=== PATIENT | male | born 1950 | race Two or more races ===

== ENCOUNTER 2018-04-04 08:45 | Day surgery (SDC) | payer OTHER ==
[~2018-04-04 08:45] MED LIST: ARICEPT 5MG; ASPIRIN 81 MG; CIPRO500 MG PO; LIPITOR20 MG; MULTIVITAMINA; PERCOCET 5/3251 TAB PO; PROBIOTIC1 EAC3; RECTICARE30 GM TP; TRAM1TAB PO; [UNRECOGNIZED DRUG - CODE]
== END 2018-04-04 13:50 | disposition home or self-care (01) ==
LOC: AMB-ENDOS 08:45
DX: K57.30 Diverticulosis of large intestine without perforation or abscess without bleeding (principal); K64.8 Other hemorrhoids

== ENCOUNTER 2018-12-12 17:34 | Outpatient (CLI) | payer OTHER ==
[2018-12-13] MEDS ORDERED: ZETIA10 MG (20:20)
[2018-12-13] MEDS ORDERED: ASPIR 8181 MG (20:20)
[2018-12-13] MEDS ORDERED: ARICEPT5 MG (20:21)
[2018-12-13] MEDS ORDERED: FISH OIL 1,0001 EAC4 (20:23)
[2018-12-13] MEDS ORDERED: CIDAFLEX TABLE1 EACH (20:23)
[2018-12-13] MEDS ORDERED: MULTIPLE VITAM1 EACH (20:23)
[2018-12-13] MEDS ORDERED: METAMUCIL0.4 GM (20:23)
[2018-12-13] MEDS ORDERED: CO Q-10300 MG (20:24)
== END 2018-12-12 17:40 | disposition home or self-care (01) ==
LOC: LAB 17:34
DX: D69.8 Other specified hemorrhagic conditions (principal); M32.8 Other forms of systemic lupus erythematosus; A54.89 Other gonococcal infections

== ENCOUNTER 2018-12-13 19:46 | Inpatient (IN) | payer OTHER ==
[~2018-12-13] VITALS: Ht 182.9 cm; Wt 81.2 kg
--- NOTE | 2018-12-13 20:16 | NUR ---
SE RECIBE PTE ALERTA Y ORIENTADO X3,REFIERE QUE LE SALIO KAREN ESPECIE DE ALER[place]IA EN EL CUERPO ,REFIERE QUE FUE A AC INTENISTA JAEL CRAFT EL CUAL LO REFIERE A LA CLARITA DE ER.,DEBIDO A QUE TIENE LAS PLAQUETAS EN 3,000 ,REFIERE QUE EN CUAL SITUACION DE LYNDSEY FAVOR LLAMAR A AC SOBRINO OPHELIA GUILLAUME [phone].
[2018-12-13] MEDS ORDERED: ZETIA10 MG (20:20)
[2018-12-13] MEDS ORDERED: ASPIR 8181 MG (20:20)
[2018-12-13] MEDS ORDERED: ARICEPT5 MG (20:21)
[2018-12-13] MEDS ORDERED: FISH OIL 1,0001 EAC4 (20:23)
[2018-12-13] MEDS ORDERED: CIDAFLEX TABLE1 EACH (20:23)
[2018-12-13] MEDS ORDERED: MULTIPLE VITAM1 EACH (20:23)
[2018-12-13] MEDS ORDERED: METAMUCIL0.4 GM (20:23)
[2018-12-13] MEDS ORDERED: CO Q-10300 MG (20:24)
--- NOTE | 2018-12-13 21:37 | NUR ---
SE ORIENTA PTE Y FAMILIAR SOBRE EL TRATAMIENTO ORDENADO POR EL DR SANDOVAL PTE ALERTA Y CONCIENTE POR 3 SE REALIZA MUESTRAS DE LABORATORIO Y SE ADMINISTRAN MEDICAMENTO FRANCINE ORDENADO PTE SE MANTIENE EN OBSERVACION Y BAJO TRATAMIENTO SE DOMINGUEZ TUBO ITZEL Y SE ENVIAN AL BANCO DE LIZETT Y SE LE ENTREGA AL SR,MICHAEL
[2018-12-27] MEDS ORDERED: ARICEPT5 MG PO (10:39)
[2018-12-27] MEDS ORDERED: ALPRAZOLAM0.5 MG PO (10:40)
[2018-12-27] MEDS ORDERED: PYRIDOXINE HCL100 M1 PO (10:40)
[2018-12-27] MEDS ORDERED: PANTOPRAZOLE SO40 MG PO (10:40)
[2018-12-27] MEDS ORDERED: Neurin-Sl Tablet Sl SL (10:41)
[2018-12-27] MEDS ORDERED: B Complex CAPSULE PO (10:41)
[2018-12-27] MEDS ORDERED: PREDNISONE20 MG PO (10:43)
[2018-12-27] MEDS ORDERED: ZOVIRAX400 M1 PO (10:44)
== END 2018-12-27 14:42 | disposition home or self-care (01) | DRG 813 ==
LOC: ER 19:46 → MEDI 22:39 → MEDJ 22:39 → SEC-K 22:39 → MEDI 23:48 → MEDJ 12-14 15:17
PROVIDERS: ADMIT Internal Medicine Geriatric Medicine
PROC: 30233R1 Transfusion of Nonautologous Platelets into Peripheral Vein, Percutaneous Approach (ICD-10-PCS; 2018-12-13)
PROC: 8E0ZXY6 Isolation (ICD-10-PCS; 2018-12-14)
PROC: 07DQ3ZX Extraction of Sternum Bone Marrow, Percutaneous Approach, Diagnostic (ICD-10-PCS; principal; 2018-12-18)
PROC: BW40ZZZ Ultrasonography of Abdomen (ICD-10-PCS; 2018-12-19)
DX: D69.3 Immune thrombocytopenic purpura (principal); D12.7 Benign neoplasm of rectosigmoid junction; D69.49 Other primary thrombocytopenia; E78.2 Mixed hyperlipidemia; G30.0 Alzheimer's disease with early onset; F02.80 Dementia in other diseases classified elsewhere, unspecified severity, without behavioral disturbance, psychotic disturbance, mood disturbance, and anxiety; B35.1 Tinea unguium; R33.8 Other retention of urine

== ENCOUNTER → 2019-01-01 10:22 | Outpatient (CLI) | payer OTHER ==
[~2019-01-01 10:22] MED LIST changes: +ALPRAZOLAM0.5 MG PO; +ARICEPT5 MG; +ARICEPT5 MG PO; +ASPIR 8181 MG; +B Complex CAPSULE PO; +CIDAFLEX TABLE1 EACH; +CO Q-10300 MG; +FISH OIL 1,0001 EAC4; +METAMUCIL0.4 GM; +MULTIPLE VITAM1 EACH; +Neurin-Sl Tablet Sl SL; +PANTOPRAZOLE SO40 MG PO; +PREDNISONE20 MG PO; +PYRIDOXINE HCL100 M1 PO; +ZETIA10 MG; +ZOVIRAX400 M1 PO
== END | disposition home or self-care (01) ==
LOC: LAB 10:22
DX: D69.49 Other primary thrombocytopenia (principal); D69.3 Immune thrombocytopenic purpura

== ENCOUNTER 2019-01-09 12:40 | Outpatient (CLI) | payer OTHER | END 2019-01-09 15:29 | disposition home or self-care (01) | LOC: LAB 12:40 | DX: D69.3 Immune thrombocytopenic purpura (principal) ==

== ENCOUNTER 2019-01-16 11:22 | Outpatient (CLI) | payer OTHER | END 2019-01-16 15:44 | disposition home or self-care (01) | LOC: LAB 11:22 | DX: D69.3 Immune thrombocytopenic purpura (principal); D50.8 Other iron deficiency anemias; D51.8 Other vitamin B12 deficiency anemias; I10 Essential (primary) hypertension; E03.8 Other specified hypothyroidism; E78.2 Mixed hyperlipidemia ==

== ENCOUNTER 2019-01-30 10:07 | Outpatient (CLI) | payer OTHER | END 2019-01-30 10:15 | disposition home or self-care (01) | LOC: LAB 10:07 | DX: D68.8 Other specified coagulation defects (principal); D51.3 Other dietary vitamin B12 deficiency anemia; I10 Essential (primary) hypertension; D69.3 Immune thrombocytopenic purpura ==

== ENCOUNTER 2019-02-14 07:32 | Outpatient (CLI) | payer OTHER | END 2019-02-14 08:57 | disposition home or self-care (01) | LOC: LAB 07:32 | DX: D69.3 Immune thrombocytopenic purpura (principal); D50.8 Other iron deficiency anemias; D51.8 Other vitamin B12 deficiency anemias; I10 Essential (primary) hypertension ==

== ENCOUNTER 2019-02-28 07:42 | Outpatient (CLI) | payer OTHER | END 2019-02-28 07:51 | disposition home or self-care (01) | LOC: LAB 07:42 | DX: D69.3 Immune thrombocytopenic purpura (principal); D50.8 Other iron deficiency anemias; D51.8 Other vitamin B12 deficiency anemias; I10 Essential (primary) hypertension ==

== ENCOUNTER 2019-03-19 08:44 | Outpatient (CLI) | payer OTHER | END 2019-03-19 09:37 | disposition home or self-care (01) | LOC: LAB 08:44 | DX: D69.3 Immune thrombocytopenic purpura (principal) ==

== ENCOUNTER 2019-04-03 11:11 | Outpatient (CLI) | payer OTHER | END 2019-04-03 11:20 | disposition home or self-care (01) | LOC: LAB 11:11 | DX: D69.3 Immune thrombocytopenic purpura (principal); D50.8 Other iron deficiency anemias ==

== ENCOUNTER 2019-04-18 10:14 | Outpatient (CLI) | payer OTHER | END 2019-04-18 10:20 | disposition home or self-care (01) | LOC: LAB 10:14 | DX: D69.3 Immune thrombocytopenic purpura (principal); I10 Essential (primary) hypertension ==

== ENCOUNTER → 2019-05-01 12:24 | Outpatient (CLI) | payer OTHER | END | disposition home or self-care (01) | LOC: LAB 12:24 | DX: D69.3 Immune thrombocytopenic purpura (principal); I10 Essential (primary) hypertension; D50.8 Other iron deficiency anemias ==

== ENCOUNTER 2019-05-22 10:05 | Outpatient (CLI) | payer OTHER | END 2019-05-22 10:09 | disposition home or self-care (01) | LOC: LAB 10:05 | DX: D69.3 Immune thrombocytopenic purpura (principal); I10 Essential (primary) hypertension ==

== ENCOUNTER → 2019-06-19 10:13 | Outpatient (CLI) | payer OTHER | END | disposition home or self-care (01) | LOC: LAB 10:13 | DX: D69.3 Immune thrombocytopenic purpura (principal); D50.8 Other iron deficiency anemias; D51.1 Vitamin B12 deficiency anemia due to selective vitamin B12 malabsorption with proteinuria ==

== ENCOUNTER 2019-07-18 08:56 | Outpatient (CLI) | payer OTHER | END 2019-07-18 11:41 | disposition home or self-care (01) | LOC: LAB 08:56 | DX: D69.3 Immune thrombocytopenic purpura (principal); I10 Essential (primary) hypertension; D50.8 Other iron deficiency anemias ==

== ENCOUNTER 2019-08-08 09:01 | Outpatient (CLI) | payer OTHER | END 2019-08-08 09:07 | disposition home or self-care (01) | LOC: LAB 09:01 | DX: D50.8 Other iron deficiency anemias (principal); I10 Essential (primary) hypertension; D69.3 Immune thrombocytopenic purpura ==

== ENCOUNTER 2019-09-20 07:03 | Outpatient (CLI) | payer OTHER | END 2019-09-20 07:10 | disposition home or self-care (01) | LOC: LAB 07:03 | DX: D69.3 Immune thrombocytopenic purpura (principal); A92.5 Zika virus disease; E78.2 Mixed hyperlipidemia; D51.3 Other dietary vitamin B12 deficiency anemia; D50.8 Other iron deficiency anemias; D51.8 Other vitamin B12 deficiency anemias; E03.8 Other specified hypothyroidism ==

== ENCOUNTER 2019-11-20 08:06 | Outpatient (CLI) | payer OTHER | END 2019-11-20 08:11 | disposition home or self-care (01) | LOC: LAB 08:06 | DX: D69.3 Immune thrombocytopenic purpura (principal); A92.5 Zika virus disease; E78.2 Mixed hyperlipidemia; D51.3 Other dietary vitamin B12 deficiency anemia; D50.8 Other iron deficiency anemias; D51.8 Other vitamin B12 deficiency anemias; I10 Essential (primary) hypertension ==

== ENCOUNTER → 2020-03-12 08:36 | Outpatient (CLI) | payer OTHER | END | disposition home or self-care (01) | LOC: LAB 08:36 | DX: E03.8 Other specified hypothyroidism (principal); D51.8 Other vitamin B12 deficiency anemias; N18.9 Chronic kidney disease, unspecified; E78.00 Pure hypercholesterolemia, unspecified; E55.9 Vitamin D deficiency, unspecified; D69.3 Immune thrombocytopenic purpura; A92.5 Zika virus disease; E78.2 Mixed hyperlipidemia; D51.3 Other dietary vitamin B12 deficiency anemia ==

== ENCOUNTER → 2020-07-21 08:14 | Outpatient (CLI) | payer OTHER | END | disposition home or self-care (01) | LOC: LAB 08:14 | PROVIDERS: ATTEND Internal Medicine Hematology & Oncology | DX: D50.8 Other iron deficiency anemias (principal); I10 Essential (primary) hypertension; D69.49 Other primary thrombocytopenia; D51.8 Other vitamin B12 deficiency anemias; D69.3 Immune thrombocytopenic purpura; A92.5 Zika virus disease; E78.2 Mixed hyperlipidemia; D51.3 Other dietary vitamin B12 deficiency anemia ==

== ENCOUNTER → 2021-04-06 08:19 | Outpatient (CLI) | payer OTHER | END | disposition home or self-care (01) | LOC: LAB 08:19 | PROVIDERS: ATTEND Internal Medicine Hematology & Oncology | DX: D50.8 Other iron deficiency anemias (principal); I10 Essential (primary) hypertension; D69.6 Thrombocytopenia, unspecified; D51.8 Other vitamin B12 deficiency anemias; E78.2 Mixed hyperlipidemia; E03.8 Other specified hypothyroidism; R97.0 Elevated carcinoembryonic antigen [CEA]; R97.8 Other abnormal tumor markers; R97.20 Elevated prostate specific antigen [PSA] ==

== ENCOUNTER 2021-09-21 07:48 | Outpatient (CLI) | payer OTHER | END 2021-09-21 07:50 | disposition home or self-care (01) | LOC: LAB 07:48 | PROVIDERS: ATTEND Internal Medicine Hematology & Oncology | DX: D50.8 Other iron deficiency anemias (principal); I10 Essential (primary) hypertension; R74.02 Elevation of levels of lactic acid dehydrogenase [LDH]; K76.89 Other specified diseases of liver; D69.6 Thrombocytopenia, unspecified; D51.8 Other vitamin B12 deficiency anemias; E55.9 Vitamin D deficiency, unspecified; E78.2 Mixed hyperlipidemia; E03.8 Other specified hypothyroidism; R97.0 Elevated carcinoembryonic antigen [CEA]; R97.8 Other abnormal tumor markers; R97.20 Elevated prostate specific antigen [PSA] ==

== ENCOUNTER 2022-03-23 07:46 | Outpatient (CLI) | payer OTHER | END 2022-03-23 07:53 | disposition home or self-care (01) | LOC: LAB 07:46 | PROVIDERS: ATTEND Internal Medicine Hematology & Oncology | DX: D50.8 Other iron deficiency anemias (principal); I10 Essential (primary) hypertension; R74.02 Elevation of levels of lactic acid dehydrogenase [LDH]; K76.89 Other specified diseases of liver; D69.6 Thrombocytopenia, unspecified; D51.8 Other vitamin B12 deficiency anemias; E55.9 Vitamin D deficiency, unspecified; E78.2 Mixed hyperlipidemia; E03.8 Other specified hypothyroidism; R97.0 Elevated carcinoembryonic antigen [CEA]; R97.8 Other abnormal tumor markers; R97.20 Elevated prostate specific antigen [PSA]; D69.3 Immune thrombocytopenic purpura; D51.3 Other dietary vitamin B12 deficiency anemia; N40.1 Benign prostatic hyperplasia with lower urinary tract symptoms; A92.5 Zika virus disease ==

== ENCOUNTER 2022-12-21 08:36 | Outpatient (CLI) | payer OTHER | END 2022-12-21 08:55 | disposition home or self-care (01) | LOC: LAB 08:36 | PROVIDERS: ATTEND Internal Medicine Hematology & Oncology | DX: D50.8 Other iron deficiency anemias (principal); I10 Essential (primary) hypertension; R74.02 Elevation of levels of lactic acid dehydrogenase [LDH]; K76.89 Other specified diseases of liver; D69.6 Thrombocytopenia, unspecified; D51.8 Other vitamin B12 deficiency anemias; R97.0 Elevated carcinoembryonic antigen [CEA]; R97.8 Other abnormal tumor markers; R97.20 Elevated prostate specific antigen [PSA]; D69.3 Immune thrombocytopenic purpura; D51.3 Other dietary vitamin B12 deficiency anemia; N40.1 Benign prostatic hyperplasia with lower urinary tract symptoms; E78.2 Mixed hyperlipidemia; A92.5 Zika virus disease; R31.1 Benign essential microscopic hematuria; N41.0 Acute prostatitis; R33.9 Retention of urine, unspecified ==

== ENCOUNTER 2023-06-21 08:32 | Outpatient (CLI) | payer OTHER | END 2023-06-21 08:34 | disposition home or self-care (01) | LOC: LAB 08:32 | PROVIDERS: ATTEND Internal Medicine Hematology & Oncology | DX: D50.8 Other iron deficiency anemias (principal); I10 Essential (primary) hypertension; R74.02 Elevation of levels of lactic acid dehydrogenase [LDH]; K76.89 Other specified diseases of liver; D69.6 Thrombocytopenia, unspecified; D51.8 Other vitamin B12 deficiency anemias; R97.0 Elevated carcinoembryonic antigen [CEA]; R97.8 Other abnormal tumor markers; R97.20 Elevated prostate specific antigen [PSA]; D51.3 Other dietary vitamin B12 deficiency anemia; N40.1 Benign prostatic hyperplasia with lower urinary tract symptoms; E78.2 Mixed hyperlipidemia; A92.5 Zika virus disease; N30.00 Acute cystitis without hematuria; R31.1 Benign essential microscopic hematuria ==

== ENCOUNTER 2023-08-25 09:15 | Outpatient (CLI) | payer OTHER | END 2023-08-25 09:26 | disposition home or self-care (01) | LOC: MRI 09:15 | PROVIDERS: ATTEND Internal Medicine | DX: K86.2 Cyst of pancreas (principal) | CPT/HCPCS: 74182; Q9965; 74181 ==

== ENCOUNTER → 2023-12-13 07:44 | Outpatient (CLI) | payer OTHER ==
[2023-12-13 08:38] LABS: HEMOGLOBIN 14.1 g/dL (13-16.00); MEAN CELL VOLUME 84.9 fL (80.0-100.00); MEAN CORPUSCULAR HEMOGLOBIN 28.4 pg (27.00-32.0); MEAN CORPUSCULAR HGB CONC 33.5 g/dl (32.0-36.0); PLATELET COUNT 177 K/uL (150-450); RED BLOOD COUNT 4.95 M/uL (4.00-6.00); RED CELL DISTRIBUTION WIDTH 14.8 % (11.5-14.5)
[2023-12-13 09:06] LABS: ALBUMIN 3.7 gm/dL (3.4-5.0); ALKALINE PHOSPHATASE 59 U/L (50-136); ALT/SGPT 35 U/L (12-78); AMYLASE 43 U/L (25-115); ANION GAP 3 (10.0-20.0); AST/SGOT 26 U/L (15-37); BILIRUBIN TOTAL 0.46 mg/dL (0.3-1.2); BLOOD UREA NITROGEN 22 mg/dL (7-18); BUN CREA RATIO 21 (7.0-25.0); CALCIUM 9.7 mg/dL (8.5-10.1); CARBON DIOXIDE 33 mEq/L (21-32); CHLORIDE 110 mmol/L (98-107); CHOL HDL RATIO 2.2 (0-5.0); CHOLESTEROL 131 mg/dL (0-200); CREATININE SERUM 1.05 mg/dL (0.70-1.30); FREE TRIODOTIRONINE 3.15 pg/ml (2.18-3.98); GFR 69.04; GLOBULINA 2.9 G/DL (2.4-3.5); GLUCOSE FASTING 104 mg/dL (65-100); HDL 59 mg/dl (40-60); LDH 166 U/L (87-241); LDL 59 mg/dl (0-130); LIPASE 47 U/L (13-75); OSMOLALITY SERUM 285 MOSM/KG (275-295); POTASSIUM 4.71 mEq/L (3.5-5.1); SODIUM 141 mmol/L (136-145); T4 TOTAL 7.22 UG/DL (4.5-12.1); TOTAL PROTEIN 6.6 gm/dL (6.4-8.2); TRIGLYCERIDES 65 mg/dL (0-150); VLDL 13 (0-39)
[2023-12-13 09:14] LABS: C-REACTIVE PROTEIN < 0.29 MG/DL (0.00-0.29)
[2023-12-13 09:18] LABS: MANUAL PLATELET COUNT 262
[2023-12-13 09:22] LABS: PH,URINE 7.5 (5.0-8.0); URINE APPEARANCE Clear; URINE BILIRRUBIN Negative (NEGATIVE); URINE BLOOD Negative; URINE COLOR Yellow; URINE GLUCOSE Negative (NEGATIVE); URINE LEUKOCYTE Negative; URINE NITRATE Negative; URINE PROTEIN Negative (NEGATIVE); URINE UROBILINOGEN 0.2 E.U./dl
[2023-12-13 09:29] LABS: URINE BACTERIA 2.5 uL (0.0-1933); URINE RBC 0.5 uL (0.0-20.8); URINE WBC 0.4 uL (0.0-23.2)
[2023-12-13 09:32] LABS: FOLIC ACID > 20.00 ng/ml (4.78-20)
[2023-12-13 11:44] LABS: ob NEGATIVE (NEGATIVE)
== END | disposition home or self-care (01) ==
LOC: LAB 07:44
PROVIDERS: ATTEND Internal Medicine Hematology & Oncology
DX: E78.9 Disorder of lipoprotein metabolism, unspecified (principal); G31.84 Mild cognitive impairment of uncertain or unknown etiology; G62.9 Polyneuropathy, unspecified; D69.59 Other secondary thrombocytopenia; E55.9 Vitamin D deficiency, unspecified; K86.2 Cyst of pancreas; R73.9 Hyperglycemia, unspecified; R06.9 Unspecified abnormalities of breathing